=== PATIENT | male | born 1990 | race Caucasian/White ===

== ENCOUNTER 2017-10-07 15:37 | Emergency (ER) | payer OTHER ==
[~2017-10-07] VITALS: Ht 180.3 cm; Wt 93.0 kg
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
[2017-10-07 16:17] VITALS: TEMP 37.2; Ht 180.3 cm; Wt 93.0 kg
--- NOTE | 2017-10-07 16:24 | DIAGNOSTIC IMAGING REPORT ---
CT OF THE CERVICAL SPINE WITHOUT CONTRAST CLINICAL HISTORY: Fall with facial injury. COMPARISON STUDY: No previous studies for comparison. TECHNIQUE: Helical axial images of the cervical spine were obtained without IV contrast. Sagittal and coronal reconstructions were viewed. A dose lowering technique was utilized adhering to the principles of ALARA. FINDINGS: Alignment of the cervical spine is anatomic with the exception of straightening of the normal cervical lordosis. No acute fracture is identified. The craniocervical junction is intact. Facet joints are intact. There is no prevertebral edema. There is no pneumothorax within the lung apices. IMPRESSION: No acute cervical spine fracture or subluxation. Electronically signed by: Ovi Napier M.D. 10/07/2017 4:22 PM Dictated Date/Time: 10/07/2017 4:19 PM
--- NOTE | 2017-10-07 16:25 | DIAGNOSTIC IMAGING REPORT ---
HEAD WITHOUT CONTRAST (CT) CLINICAL HISTORY: 27 years-old Male with fall, facial injury . Acute facial trauma status post fall TECHNIQUE: Multiple axial CT images of the head were obtained without contrast. A dose lowering technique was utilized adhering to the principles of ALARA. CT DOSE: 1089.89 mGy.cm COMPARISON: Cervical spine and maxillofacial same day. FINDINGS: There is extra-axial hemorrhage adjacent to the right frontal lobe measuring up to 3.1 x 0.6 cm on image 25 series 2. No significant edema, mass effect or midline shift. No intraparenchymal hemorrhage. No hydrocephalus or territorial ischemia. Ventricles, cisterns and sulci appear unremarkable otherwise. There is no calvarial fracture identified. Mastoid air cells and middle ear cavities are clear. Imaged paranasal sinuses are also generally clear. Right frontal scalp hematoma measures 3.6 x 0.8 cm. Mild right periorbital soft tissue swelling. The globes appear unremarkable. IMPRESSION: 1. Small subdural hematoma is present adjacent to the right frontal lobe near the vertex, 3.1 x 0.6 cm. No significant mass effect or edema. 2. Right frontal scalp hematoma with right periorbital soft tissue swelling. No calvarial fracture. Findings were discussed with Dr. Meyers on 10/07/2017 at 4:20 PM The above report was generated using voice recognition software. It may contain grammatical, syntax or spelling errors. Electronically signed by: Duncan Berry M.D. 10/07/2017 4:23 PM Dictated Date/Time: 10/07/2017 4:17 PM
--- NOTE | 2017-10-07 16:30 | DIAGNOSTIC IMAGING REPORT ---
FACIAL BONES-MXILLOFAC WITHOUT CLINICAL HISTORY: 27 years-old Male presenting with fall, facial injury . Acute facial trauma status post injury COMPARISON STUDY: CT head and cervical spine of same day TECHNIQUE: High-resolution CT scan of the facial bones is performed. Images are reviewed in the axial, sagittal, and coronal planes. IV contrast was not administered for this examination. A dose lowering technique was utilized adhering to the principles of ALARA. FINDINGS: There is no evidence of facial bone fracture. The bony orbits are intact and the orbital contents are within normal limits. The zygomatic arches, nasal bones, and pterygoid plates are preserved. The maxilla and mandible are intact. Minimal mucosal thickening of the inferior left frontal sinus with mild polypoid mucosal thickening of the medial left maxillary wall. Mild rightward bowing and spurring of the nasal septum. Right frontal scalp hematoma noted with mild right periorbital soft tissue swelling. Previously described right frontal subdural hematoma not seen on this study. Periodontal disease noted with periapical cyst in the expected region of the right maxillary central incisor. There is a small perineural cyst of the left maxillary central incisor. IMPRESSION: 1. No acute facial bone fracture or dislocation identified. 2. Right frontal scalp hematoma noted with mild right periorbital soft tissue swelling. 3. Mild paranasal and periodontal disease as above. The above report was generated using voice recognition software. It may contain grammatical, syntax or spelling errors. Electronically signed by: Duncan Berry M.D. 10/07/2017 4:29 PM Dictated Date/Time: 10/07/2017 4:23 PM
[2017-10-07 16:44] LABS: BUN/CREATININE RATIO 6.8 (10-20); CALCIUM 8.9 mg/dl (8.5-10.1); CREATININE 1.48 mg/dl (0.60-1.40); POTASSIUM 3.6 mmol/L (3.5-5.1)
[2017-10-07 16:51] LABS: BASO % 0.2 %; BASO ABS # 0.01 K/uL (0-0.2); COMPLETE YES; EOS % 1.5 %; HEMATOCRIT 45.4 % (42-52); IG% 0.3 %; LYMPH % 28.9 %; LYMPH ABS # 1.89 K/uL (1.2-3.4); MEAN CELL VOLUME 88.8 fL (80-100); MEAN CORPUSCULAR HEMOGLOBIN 31.3 pg (25-34); MEAN CORPUSCULAR HGB CONC 35.2 g/dl (32-36); MEAN PLATELET VOLUME 10.1 fL (7.4-10.4); MONO % 6.7 %; NEUT % 62.4 %; PLATELET COUNT 258 K/uL (130-400); RED BLOOD COUNT 5.11 M/uL (4.7-6.1); WHITE BLOOD COUNT 6.53 K/uL (4.8-10.8)
[2017-10-07 17:06] VITALS: BP 141/100; PULSE 87; O2SAT 98
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
== END 2017-10-07 17:07 | disposition short-term general hospital (02) ==
LOC: C.EDA 15:39
DX: S06.5X0A Traumatic subdural hemorrhage without loss of consciousness, initial encounter (principal); S03.2XXA Dislocation of tooth, initial encounter; R56.9 Unspecified convulsions; V19.9XXA Pedal cyclist (driver) (passenger) injured in unspecified traffic accident, initial encounter; T14.8XXA Other injury of unspecified body region, initial encounter